=== PATIENT | male | born 1965 | race Caucasian/White ===

== ENCOUNTER 2019-03-27 15:55 | Inpatient (IN) | payer OTHER ==
[2019-03-27 16:25] LABS: ADD MAN DIFF? NO
[2019-03-27 16:26] LABS: WHITE BLOOD COUNT 13.4 10^3/ul (4.8-10.8)
[2019-03-27 16:26] LABS: BASOPHIL # 0.1 10^3/ul (0.0-0.1); BASOPHILS % 0.4 % (0.0-2.0); EOSINOPHILS # 0.5 10^3/ul (0.0-0.5); EOSINOPHILS % 3.8 % (0.0-7.0); HEMATOCRIT 36.5 % (42.0-52.0); HEMOGLOBIN 12.1 g/dl (14.0-18.0); MEAN CORPUSCULAR HEMOGLOBIN 28.2 pg (29.0-33.0); MEAN CORPUSCULAR HGB CONC 33.2 g/dl (32.0-37.0); MEAN CORPUSCULAR VOLUME 85.1 fl (82.0-101.0); MEAN PLATELET VOLUME 9.3 fl (7.4-10.4); MONOCYTE # 0.8 10^3/ul (0.3-0.9); NEUTROPHIL # 9.1 10^3/ul (1.6-7.5); NEUTROPHILS % 67.4 % (39.0-77.0); PLATELET COUNT 442 10^3/UL (140-415); RED BLOOD COUNT 4.29 10^6/ul (4.70-6.10); RED CELL DISTRIBUTION WIDTH 14.2 % (11.5-14.5)
[2019-03-27 16:45] LABS: ALANINE AMINOTRANSFERASE 27 IU/L (13-69); ALBUMIN 3.4 g/dl (3.3-4.9); ALBUMIN/GLOBULIN RATIO 0.85; ALKALINE PHOSPHATASE 138 IU/L (42-121); ANION GAP 8 (5-13); ASPARTATE AMINO TRANSFERASE 30 IU/L (15-46); BILIRUBIN,INDIRECT 0.8 mg/dl (0-1.1); BILIRUBIN,TOTAL 0.8 mg/dl (0.2-1.3); BLOOD UREA NITROGEN 16 mg/dl (7-20); CALCIUM 8.6 mg/dl (8.4-10.2); CARBON DIOXIDE 26 mmol/L (21-31); CHLORIDE 100 mmol/L (97-110); CREATININE 0.75 mg/dl (0.61-1.24); Estimated GFR > 60 mL/min (>60); GLUCOSE 356 mg/dl (70-220); POTASSIUM 4.3 mmol/L (3.5-5.1); SODIUM 134 mmol/L (135-144); TOTAL PROTEIN 7.4 g/dl (6.1-8.1)
[2019-03-27 16:49] LABS: INR 1.01; PARTIAL THROMBOPLASTIN TIME 21.3 Sec (23.0-35.0); PROTIME 13.4 Sec (11.9-14.9)
[2019-03-27 16:56] LABS: TROPONIN-I 0.019 ng/ml (0.000-0.120)
[2019-03-27] MEDS ORDERED: ACETAMINOPHEN 325 MG TAB PO ×2 (17:30→18:00)
[2019-03-27] MEDS ORDERED: ONDANSETRON 4 MG INJ IV ×2 (17:30→18:00)
[2019-03-27] MEDS: FUROSEMIDE 40 MG INJ IV ×2 (17:51→18:03)
[2019-03-27] MEDS ORDERED: FUROSEMIDE 100 MG INJ IV (18:00)
[2019-03-27] MEDS ORDERED: NACL 0.9% 3 ML SYG IV (18:00)
[2019-03-27] MEDS ORDERED: GLUCAGON 1 MG INJ IM (18:30)
[2019-03-27] MEDS ORDERED: DEXTROSE 50% 50 ML SYRINGE IV ×2 (18:30)
[2019-03-27] MEDS ORDERED: GLUCOSE GEL 15 GRAM TUBE BUCCAL (18:30)
[2019-03-27] MEDS ORDERED: GLUCOSE GEL 15 GRAM TUBE PO ×2 (18:30)
[2019-03-27 19:21] LABS: PROCALCITONIN 0.23 ng/mL (0.00-0.10)
[2019-03-27] MEDS: FAMOTIDINE 20 MG TAB PO (21:07)
[2019-03-27] MEDS: ATORVASTATIN 40 MG TAB PO (21:07)
[2019-03-27 21:08] LABS: LACTIC ACID 1.4 mmol/L (0.5-2.0)
[2019-03-27] MEDS: INSULIN ASPART [NOVOLOG] 3 ML PEN SC (21:43)
[2019-03-27 22:44] LABS: LACTIC ACID 1.3 mmol/L (0.5-2.0)
[2019-03-28] MEDS: ACCU-CHEK XX (01:48)
[2019-03-28 04:28] LABS: ADD MAN DIFF? NO
[2019-03-28 04:30] LABS: WHITE BLOOD COUNT 14.5 10^3/ul (4.8-10.8)
[2019-03-28 04:30] LABS: BASOPHIL # 0.1 10^3/ul (0.0-0.1); BASOPHILS % 0.3 % (0.0-2.0); EOSINOPHILS # 0.7 10^3/ul (0.0-0.5); EOSINOPHILS % 4.8 % (0.0-7.0); HEMOGLOBIN 12.1 g/dl (14.0-18.0); LYMPHOCYTES # 4.4 10^3/ul (0.8-2.9); LYMPHOCYTES % 30.1 % (15.0-51.0); MEAN CORPUSCULAR HGB CONC 32.7 g/dl (32.0-37.0); MEAN CORPUSCULAR VOLUME 85.6 fl (82.0-101.0); MEAN PLATELET VOLUME 9.3 fl (7.4-10.4); MONOCYTE # 0.8 10^3/ul (0.3-0.9); MONOCYTES % 5.7 % (0.0-11.0); NEUTROPHIL # 8.5 10^3/ul (1.6-7.5); NEUTROPHILS % 58.7 % (39.0-77.0); PLATELET COUNT 437 10^3/UL (140-415); RED BLOOD COUNT 4.32 10^6/ul (4.70-6.10); RED CELL DISTRIBUTION WIDTH 14.2 % (11.5-14.5)
[2019-03-28 04:47] LABS: ALANINE AMINOTRANSFERASE 26 IU/L (13-69); ALBUMIN 3.3 g/dl (3.3-4.9); ALBUMIN/GLOBULIN RATIO 0.78; ALKALINE PHOSPHATASE 144 IU/L (42-121); ANION GAP 7 (5-13); ASPARTATE AMINO TRANSFERASE 25 IU/L (15-46); BILIRUBIN,INDIRECT 0.7 mg/dl (0-1.1); BILIRUBIN,TOTAL 0.7 mg/dl (0.2-1.3); BLOOD UREA NITROGEN 15 mg/dl (7-20); CALCIUM 8.7 mg/dl (8.4-10.2); CARBON DIOXIDE 27 mmol/L (21-31); CHLORIDE 101 mmol/L (97-110); CHOL/HDL RATIO 6.2 RATIO; CHOLESTEROL 168 mg/dl (100-200); CREATININE 0.59 mg/dl (0.61-1.24); Estimated GFR > 60 mL/min (>60); GLUCOSE 213 mg/dl (70-220); HDL CHOLESTEROL 27 mg/dl (28-71); LDL CHOLESTEROL,CALCULATED 123 mg/dl; PHOSPHORUS 4.4 mg/dl (2.5-4.9); POTASSIUM 4.2 mmol/L (3.5-5.1); SODIUM 135 mmol/L (135-144); TOTAL PROTEIN 7.5 g/dl (6.1-8.1); TRIGLYCERIDES 92 mg/dl (0-149)
[2019-03-28 05:02] LABS: HEMOGLOBIN A1C 9.7 % (0-5.9)
[2019-03-28 05:17] LABS: THYROID STIMULATING HORMONE 0.825 MIU/L (0.465-4.680)
[2019-03-28] MEDS: PIPER-TAZO 3.375 GM IV (PMX) 100 ML IVPB ×4 (05:25→23:46)
[2019-03-28] MEDS: FUROSEMIDE 40 MG INJ IV (05:26)
[2019-03-28 06:10] LABS: AADO2 Arterial 130.8 mmHg (7.0-24.0); Allen Test ACCEPTAB; Arterial Base Excess -0.8 mmol/L (-3.0-3); Arterial Blood Gas Oxygen Sat 90.2 mmHG (95.0-98.0); Arterial COHb 0.3 % (0.0-3.0); Arterial Fraction of Oxyhgb 89.6 % (93.0-99.0); Arterial HCO3 23.7 mmol/L (22.0-26.0); Arterial MetHb 0.4 % (0.0-1.5); Arterial pCO2 38.7 mmhg (35-45); MODE NASAL CANNULA; Site Right Radial
[2019-03-28] MEDS: ASPIRIN 81 MG TAB PO (08:41)
[2019-03-28] MEDS: CLOPIDOGREL 75 MG TAB PO (08:41)
[2019-03-28] MEDS: FAMOTIDINE 20 MG TAB PO ×2 (08:41→20:48)
[2019-03-28] MEDS: ENOXAPARIN 30 MG/0.3 ML SYG SC (08:42)
[2019-03-28] MEDS: INSULIN ASPART [NOVOLOG] 3 ML PEN SC ×4 (09:00→20:52)
[2019-03-28 09:56] LABS: TROPONIN-I 0.023 ng/ml (0.000-0.120)
[2019-03-28 20:16] LABS: AADO2 Arterial 220.1 mmHg (7.0-24.0); Allen Test ACCEPTAB; Arterial Base Excess 2.9 mmol/L (-3.0-3); Arterial Blood Gas Oxygen Sat 97.8 mmHG (95.0-98.0); Arterial COHb 0 % (0.0-3.0); Arterial Fraction of Oxyhgb 97.3 % (93.0-99.0); Arterial HCO3 25.7 mmol/L (22.0-26.0); Arterial MetHb 0.5 % (0.0-1.5); Arterial pCO2 33.7 mmhg (35-45); MODE HFNC; Site Left Radial
[2019-03-28] MEDS: ATORVASTATIN 40 MG TAB PO (20:48)
[2019-03-29] MEDS: ACCU-CHEK XX (02:00)
[2019-03-29 04:52] LABS: ADD MAN DIFF? NO
[2019-03-29 04:57] LABS: WHITE BLOOD COUNT 11.4 10^3/ul (4.8-10.8)
[2019-03-29 04:57] LABS: BASOPHIL # 0.1 10^3/ul (0.0-0.1); BASOPHILS % 0.4 % (0.0-2.0); EOSINOPHILS # 0.6 10^3/ul (0.0-0.5); EOSINOPHILS % 5.4 % (0.0-7.0); HEMATOCRIT 35.1 % (42.0-52.0); HEMOGLOBIN 11.5 g/dl (14.0-18.0); LYMPHOCYTES # 2.9 10^3/ul (0.8-2.9); LYMPHOCYTES % 25.7 % (15.0-51.0); MEAN CORPUSCULAR HEMOGLOBIN 27.6 pg (29.0-33.0); MEAN CORPUSCULAR HGB CONC 32.8 g/dl (32.0-37.0); MEAN CORPUSCULAR VOLUME 84.2 fl (82.0-101.0); MEAN PLATELET VOLUME 9.1 fl (7.4-10.4); MONOCYTE # 0.6 10^3/ul (0.3-0.9); MONOCYTES % 5.4 % (0.0-11.0); NEUTROPHIL # 7.2 10^3/ul (1.6-7.5); NEUTROPHILS % 62.7 % (39.0-77.0); PLATELET COUNT 457 10^3/UL (140-415); RED BLOOD COUNT 4.17 10^6/ul (4.70-6.10); RED CELL DISTRIBUTION WIDTH 14.1 % (11.5-14.5)
[2019-03-29] MEDS: PIPER-TAZO 3.375 GM IV (PMX) 100 ML IVPB ×3 (05:20→17:28)
[2019-03-29 05:23] LABS: ALANINE AMINOTRANSFERASE 29 IU/L (13-69); ALBUMIN/GLOBULIN RATIO 0.76; ALKALINE PHOSPHATASE 114 IU/L (42-121); ANION GAP 5 (5-13); ASPARTATE AMINO TRANSFERASE 24 IU/L (15-46); BILIRUBIN,INDIRECT 0.7 mg/dl (0-1.1); BILIRUBIN,TOTAL 0.7 mg/dl (0.2-1.3); BLOOD UREA NITROGEN 20 mg/dl (7-20); CALCIUM 8.3 mg/dl (8.4-10.2); CARBON DIOXIDE 31 mmol/L (21-31); CHLORIDE 98 mmol/L (97-110); CREATININE 0.76 mg/dl (0.61-1.24); Estimated GFR > 60 mL/min (>60); GLUCOSE 135 mg/dl (70-220); POTASSIUM 3.6 mmol/L (3.5-5.1); SODIUM 134 mmol/L (135-144); TOTAL PROTEIN 6.9 g/dl (6.1-8.1)
[2019-03-29] MEDS: INSULIN ASPART [NOVOLOG] 3 ML PEN SC ×4 (07:58→21:00)
[2019-03-29] MEDS: FAMOTIDINE 20 MG TAB PO ×2 (08:00→21:31)
[2019-03-29] MEDS: CLOPIDOGREL 75 MG TAB PO (08:00)
[2019-03-29] MEDS: FUROSEMIDE 40 MG TAB PO ×2 (08:00→17:28)
[2019-03-29] MEDS: ASPIRIN 81 MG TAB PO (08:00)
[2019-03-29] MEDS: ENOXAPARIN 30 MG/0.3 ML SYG SC (08:18)
[2019-03-29] MEDS: ATORVASTATIN 40 MG TAB PO (21:31)
[2019-03-29] MEDS: INSULIN GLARGINE [LANTus] (100 UNITS/ML) SYG SC (21:35)
[2019-03-30] MEDS: PIPER-TAZO 3.375 GM IV (PMX) 100 ML IVPB ×4 (00:09→17:32)
[2019-03-30] MEDS: ACCU-CHEK XX (02:00)
[2019-03-30] MEDS: FUROSEMIDE 40 MG TAB PO ×2 (05:48→17:32)
[2019-03-30 06:30] LABS: ADD MAN DIFF? NO
[2019-03-30 06:41] LABS: WHITE BLOOD COUNT 9.2 10^3/ul (4.8-10.8)
[2019-03-30 06:41] LABS: BASOPHILS % 0.4 % (0.0-2.0); EOSINOPHILS # 0.5 10^3/ul (0.0-0.5); EOSINOPHILS % 5.7 % (0.0-7.0); HEMATOCRIT 36.9 % (42.0-52.0); HEMOGLOBIN 12.1 g/dl (14.0-18.0); LYMPHOCYTES # 2.6 10^3/ul (0.8-2.9); LYMPHOCYTES % 27.8 % (15.0-51.0); MEAN CORPUSCULAR HEMOGLOBIN 27.5 pg (29.0-33.0); MEAN CORPUSCULAR HGB CONC 32.8 g/dl (32.0-37.0); MEAN CORPUSCULAR VOLUME 83.9 fl (82.0-101.0); MEAN PLATELET VOLUME 9.2 fl (7.4-10.4); MONOCYTE # 0.6 10^3/ul (0.3-0.9); MONOCYTES % 6.3 % (0.0-11.0); NEUTROPHIL # 5.4 10^3/ul (1.6-7.5); NEUTROPHILS % 59.5 % (39.0-77.0); PLATELET COUNT 538 10^3/UL (140-415)
[2019-03-30 06:57] LABS: PHOSPHORUS 4.6 mg/dl (2.5-4.9)
[2019-03-30 07:19] LABS: ANION GAP 7 (5-13); BLOOD UREA NITROGEN 16 mg/dl (7-20); CALCIUM 8.6 mg/dl (8.4-10.2); CARBON DIOXIDE 32 mmol/L (21-31); CHLORIDE 95 mmol/L (97-110); CREATININE 0.77 mg/dl (0.61-1.24); Estimated GFR > 60 mL/min (>60); GLUCOSE 136 mg/dl (70-220); POTASSIUM 3.7 mmol/L (3.5-5.1); SODIUM 134 mmol/L (135-144)
[2019-03-30] MEDS: CLOPIDOGREL 75 MG TAB PO (08:00)
[2019-03-30] MEDS: FAMOTIDINE 20 MG TAB PO ×2 (08:00→21:05)
[2019-03-30] MEDS: ASPIRIN 81 MG TAB PO (08:00)
[2019-03-30] MEDS: INSULIN ASPART [NOVOLOG] 3 ML PEN SC ×4 (08:08→21:14)
[2019-03-30] MEDS: ENOXAPARIN 30 MG/0.3 ML SYG SC (08:09)
[2019-03-30] MEDS: INSULIN GLARGINE [LANTus] (100 UNITS/ML) SYG SC (20:00)
[2019-03-30] MEDS: ATORVASTATIN 40 MG TAB PO (21:05)
[2019-03-31] MEDS: PIPER-TAZO 3.375 GM IV (PMX) 100 ML IVPB ×5 (00:07→23:10)
[2019-03-31] MEDS: ACCU-CHEK XX (02:15)
[2019-03-31] MEDS: FUROSEMIDE 40 MG TAB PO ×2 (05:44→09:00)
[2019-03-31 06:13] LABS: ADD MAN DIFF? NO
[2019-03-31 06:17] LABS: WHITE BLOOD COUNT 9.4 10^3/ul (4.8-10.8)
[2019-03-31 06:17] LABS: BASOPHILS % 0.3 % (0.0-2.0); EOSINOPHILS # 0.5 10^3/ul (0.0-0.5); EOSINOPHILS % 5.7 % (0.0-7.0); HEMATOCRIT 39.5 % (42.0-52.0); HEMOGLOBIN 12.9 g/dl (14.0-18.0); LYMPHOCYTES # 3.1 10^3/ul (0.8-2.9); LYMPHOCYTES % 32.8 % (15.0-51.0); MEAN CORPUSCULAR HEMOGLOBIN 27.7 pg (29.0-33.0); MEAN CORPUSCULAR HGB CONC 32.7 g/dl (32.0-37.0); MEAN CORPUSCULAR VOLUME 84.8 fl (82.0-101.0); MONOCYTE # 0.7 10^3/ul (0.3-0.9); MONOCYTES % 6.9 % (0.0-11.0); NEUTROPHIL # 5.1 10^3/ul (1.6-7.5); NEUTROPHILS % 54.1 % (39.0-77.0); PLATELET COUNT 553 10^3/UL (140-415); RED BLOOD COUNT 4.66 10^6/ul (4.70-6.10); RED CELL DISTRIBUTION WIDTH 13.8 % (11.5-14.5)
[2019-03-31 06:55] LABS: ANION GAP 8 (5-13); BLOOD UREA NITROGEN 15 mg/dl (7-20); CALCIUM 8.7 mg/dl (8.4-10.2); CARBON DIOXIDE 33 mmol/L (21-31); CHLORIDE 95 mmol/L (97-110); CREATININE 0.89 mg/dl (0.61-1.24); Estimated GFR > 60 mL/min (>60); GLUCOSE 135 mg/dl (70-220); POTASSIUM 3.9 mmol/L (3.5-5.1); SODIUM 136 mmol/L (135-144)
[2019-03-31 07:02] LABS: PHOSPHORUS 4.7 mg/dl (2.5-4.9)
[2019-03-31] MEDS: INSULIN ASPART [NOVOLOG] 3 ML PEN SC ×5 (08:00→20:43)
[2019-03-31] MEDS: ASPIRIN 81 MG TAB PO (08:16)
[2019-03-31] MEDS: FAMOTIDINE 20 MG TAB PO ×2 (08:17→20:14)
[2019-03-31] MEDS: CLOPIDOGREL 75 MG TAB PO (08:17)
[2019-03-31] MEDS: ENOXAPARIN 30 MG/0.3 ML SYG SC (08:23)
[2019-03-31] MEDS: FUROSEMIDE 40 MG INJ IV (11:40)
[2019-03-31] MEDS: METHYLPREDNISOLONE 40 MG INJ IV ×2 (13:18→21:24)
[2019-03-31] MEDS: ATORVASTATIN 40 MG TAB PO (20:14)
[2019-03-31] MEDS: INSULIN GLARGINE [LANTus] (100 UNITS/ML) SYG SC ×2 (20:43→20:44)
[2019-04-01] MEDS: ACCU-CHEK XX (01:13)
[2019-04-01] MEDS: PIPER-TAZO 3.375 GM IV (PMX) 100 ML IVPB ×3 (06:06→18:21)
[2019-04-01] MEDS: METHYLPREDNISOLONE 40 MG INJ IV ×3 (06:06→22:01)
[2019-04-01 06:18] LABS: ADD MAN DIFF? NO
[2019-04-01 06:31] LABS: BASOPHILS % 0.1 % (0.0-2.0); HEMATOCRIT 37.5 % (42.0-52.0); HEMOGLOBIN 12.2 g/dl (14.0-18.0); LYMPHOCYTES # 1.8 10^3/ul (0.8-2.9); LYMPHOCYTES % 13.1 % (15.0-51.0); MEAN CORPUSCULAR HEMOGLOBIN 27.9 pg (29.0-33.0); MEAN CORPUSCULAR HGB CONC 32.5 g/dl (32.0-37.0); MEAN CORPUSCULAR VOLUME 85.6 fl (82.0-101.0); MEAN PLATELET VOLUME 9.2 fl (7.4-10.4); MONOCYTE # 0.2 10^3/ul (0.3-0.9); MONOCYTES % 1.7 % (0.0-11.0); NEUTROPHIL # 11.7 10^3/ul (1.6-7.5); NEUTROPHILS % 84.6 % (39.0-77.0); PLATELET COUNT 530 10^3/UL (140-415); RED BLOOD COUNT 4.38 10^6/ul (4.70-6.10); RED CELL DISTRIBUTION WIDTH 13.5 % (11.5-14.5)
[2019-04-01 06:31] LABS: WHITE BLOOD COUNT 13.8 10^3/ul (4.8-10.8)
[2019-04-01 07:14] LABS: ANION GAP 5 (5-13); BLOOD UREA NITROGEN 26 mg/dl (7-20); CALCIUM 8.5 mg/dl (8.4-10.2); CARBON DIOXIDE 31 mmol/L (21-31); CHLORIDE 98 mmol/L (97-110); CREATININE 0.72 mg/dl (0.61-1.24); Estimated GFR > 60 mL/min (>60); GLUCOSE 317 mg/dl (70-220); MAGNESIUM 2.1 mg/dl (1.7-2.5); PHOSPHORUS 3.9 mg/dl (2.5-4.9); POTASSIUM 3.9 mmol/L (3.5-5.1); SODIUM 134 mmol/L (135-144)
[2019-04-01] MEDS: ASPIRIN 81 MG TAB PO (08:08)
[2019-04-01] MEDS: CLOPIDOGREL 75 MG TAB PO (08:08)
[2019-04-01] MEDS: FAMOTIDINE 20 MG TAB PO ×2 (08:08→20:40)
[2019-04-01] MEDS: FUROSEMIDE 40 MG INJ IV (08:08)
[2019-04-01] MEDS: INSULIN ASPART [NOVOLOG] 3 ML PEN SC ×7 (08:15→22:15)
[2019-04-01] MEDS: ENOXAPARIN 30 MG/0.3 ML SYG SC (08:15)
[2019-04-01] MEDS: LOSARTAN 25 MG TAB PO (11:14)
[2019-04-01 14:24] LABS: GLUCOSE 402 mg/dl (70-220)
[2019-04-01 15:44] LABS: AADO2 Arterial 34.3 mmHg (7.0-24.0); Allen Test ACCEPTAB; Arterial Base Excess 3.2 mmol/L (-3.0-3); Arterial Blood Gas Oxygen Sat 94.7 mmHG (95.0-98.0); Arterial COHb 0.1 % (0.0-3.0); Arterial Fraction of Oxyhgb 94.2 % (93.0-99.0); Arterial HCO3 26.7 mmol/L (22.0-26.0); Arterial MetHb 0.4 % (0.0-1.5); Arterial pCO2 36.8 mmhg (35-45); MODE ROOM AIR; Site Right Radial
[2019-04-01] MEDS: ATORVASTATIN 40 MG TAB PO (20:40)
[2019-04-01] MEDS: INSULIN GLARGINE [LANTus] (100 UNITS/ML) SYG SC (20:48)
[2019-04-02] MEDS: PIPER-TAZO 3.375 GM IV (PMX) 100 ML IVPB ×4 (00:23→17:12)
[2019-04-02] MEDS: ACCU-CHEK XX (01:53)
[2019-04-02] MEDS ORDERED: ACCU-CHEK XX (02:00)
[2019-04-02] MEDS: METHYLPREDNISOLONE 40 MG INJ IV ×3 (05:56→22:00)
[2019-04-02 06:43] LABS: ADD MAN DIFF? NO
[2019-04-02 06:56] LABS: ABNORMAL IP MESSAGE 1; BASOPHILS % 0.1 % (0.0-2.0); HEMATOCRIT 36.1 % (42.0-52.0); HEMOGLOBIN 11.5 g/dl (14.0-18.0); LYMPHOCYTES # 2.2 10^3/ul (0.8-2.9); MEAN CORPUSCULAR HEMOGLOBIN 27.6 pg (29.0-33.0); MEAN CORPUSCULAR HGB CONC 31.9 g/dl (32.0-37.0); MEAN CORPUSCULAR VOLUME 86.6 fl (82.0-101.0); MEAN PLATELET VOLUME 9.3 fl (7.4-10.4); MONOCYTE # 0.5 10^3/ul (0.3-0.9); MONOCYTES % 2.2 % (0.0-11.0); NEUTROPHIL # 21.1 10^3/ul (1.6-7.5); NEUTROPHILS % 87.9 % (39.0-77.0); PLATELET COUNT 541 10^3/UL (140-415); POSITIVE DIFF @See below; RED BLOOD COUNT 4.17 10^6/ul (4.70-6.10); RED CELL DISTRIBUTION WIDTH 13.8 % (11.5-14.5)
[2019-04-02 06:56] LABS: WHITE BLOOD COUNT 24.1 10^3/ul (4.8-10.8)
[2019-04-02 07:13] LABS: ANION GAP 7 (5-13); BLOOD UREA NITROGEN 29 mg/dl (7-20); CALCIUM 8.5 mg/dl (8.4-10.2); CARBON DIOXIDE 31 mmol/L (21-31); CHLORIDE 100 mmol/L (97-110); CREATININE 0.73 mg/dl (0.61-1.24); Estimated GFR > 60 mL/min (>60); GLUCOSE 259 mg/dl (70-220); PHOSPHORUS 3.4 mg/dl (2.5-4.9); POTASSIUM 3.8 mmol/L (3.5-5.1); SODIUM 138 mmol/L (135-144)
[2019-04-02] MEDS: ASPIRIN 81 MG TAB PO (08:18)
[2019-04-02] MEDS: FAMOTIDINE 20 MG TAB PO ×2 (08:18→21:09)
[2019-04-02] MEDS: CLOPIDOGREL 75 MG TAB PO (08:19)
[2019-04-02] MEDS: LOSARTAN 25 MG TAB PO (08:20)
[2019-04-02] MEDS: FUROSEMIDE 40 MG INJ IV (08:20)
[2019-04-02] MEDS: INSULIN ASPART [NOVOLOG] 3 ML PEN SC ×8 (08:40→21:07)
[2019-04-02] MEDS: ENOXAPARIN 30 MG/0.3 ML SYG SC (08:40)
[2019-04-02 12:36] LABS: NIL 0.02 IU/mL; QUANTIFERON(R)-TB GOLD NEGATIVE (NEGATIVE); TB2-NIL 0.01 IU/mL
[2019-04-02] MEDS: NPH, HUMAN INSULIN ISOPHANE 3ML VIAL SC ×2 (14:57→22:00)
[2019-04-02] MEDS: INSULIN GLARGINE [LANTus] (100 UNITS/ML) SYG SC (20:00)
[2019-04-02] MEDS: ATORVASTATIN 40 MG TAB PO (21:09)
[2019-04-03] MEDS: PIPER-TAZO 3.375 GM IV (PMX) 100 ML IVPB ×5 (00:50→23:48)
[2019-04-03] MEDS: ACCU-CHEK XX ×2 (02:00→23:42)
[2019-04-03] MEDS: METHYLPREDNISOLONE 40 MG INJ IV ×3 (06:34→22:37)
[2019-04-03 06:55] LABS: ADD MAN DIFF? NO
[2019-04-03 07:07] LABS: PLATELET COUNT 517 10^3/UL (140-415)
[2019-04-03 07:08] LABS: ABNORMAL IP MESSAGE 1; BASOPHILS % 0.1 % (0.0-2.0); HEMATOCRIT 38.2 % (42.0-52.0); LYMPHOCYTES # 2.1 10^3/ul (0.8-2.9); LYMPHOCYTES % 8.8 % (15.0-51.0); MEAN CORPUSCULAR HEMOGLOBIN 27.6 pg (29.0-33.0); MEAN CORPUSCULAR HGB CONC 31.4 g/dl (32.0-37.0); MEAN CORPUSCULAR VOLUME 87.8 fl (82.0-101.0); MEAN PLATELET VOLUME 9.4 fl (7.4-10.4); MONOCYTE # 0.8 10^3/ul (0.3-0.9); MONOCYTES % 3.2 % (0.0-11.0); NEUTROPHIL # 20.9 10^3/ul (1.6-7.5); NEUTROPHILS % 87.2 % (39.0-77.0); PLATELET COUNT 539 10^3/UL (140-415); POSITIVE DIFF @See below; RED BLOOD COUNT 4.35 10^6/ul (4.70-6.10)
[2019-04-03 07:24] LABS: INR 1.07; PT RATIO 1.1
[2019-04-03 07:26] LABS: PARTIAL THROMBOPLASTIN TIME 26.5 Sec (23.0-35.0)
[2019-04-03 07:27] LABS: THROMBIN TIME 18.1 SEC (13.8-19.1)
[2019-04-03 07:28] LABS: ANION GAP 7 (5-13); BLOOD UREA NITROGEN 33 mg/dl (7-20); CALCIUM 8.6 mg/dl (8.4-10.2); CARBON DIOXIDE 29 mmol/L (21-31); CHLORIDE 103 mmol/L (97-110); CREATININE 0.71 mg/dl (0.61-1.24); Estimated GFR > 60 mL/min (>60); GLUCOSE 291 mg/dl (70-220); POTASSIUM 4.1 mmol/L (3.5-5.1); SODIUM 139 mmol/L (135-144)
[2019-04-03] MEDS: NPH, HUMAN INSULIN ISOPHANE 3ML VIAL SC ×3 (08:04→22:41)
[2019-04-03] MEDS: INSULIN ASPART [NOVOLOG] 3 ML PEN SC ×9 (08:27→23:45)
[2019-04-03] MEDS: CLOPIDOGREL 75 MG TAB PO (09:03)
[2019-04-03] MEDS: FAMOTIDINE 20 MG TAB PO ×2 (09:03→21:15)
[2019-04-03] MEDS: FUROSEMIDE 40 MG INJ IV (09:04)
[2019-04-03] MEDS: ASPIRIN 81 MG TAB PO (09:04)
[2019-04-03] MEDS: LOSARTAN 25 MG TAB PO (09:58)
[2019-04-03] MEDS: ENOXAPARIN 30 MG/0.3 ML SYG SC (10:15)
[2019-04-03] MEDS: ATORVASTATIN 40 MG TAB PO (21:15)
[2019-04-03] MEDS: INSULIN GLARGINE [LANTus] (100 UNITS/ML) SYG SC (21:19)
[2019-04-03 21:38] LABS: GLUCOSE 421 mg/dl (70-220)
[2019-04-04] MEDS: ACCU-CHEK XX ×2 (02:00→02:21)
[2019-04-04 06:13] LABS: ADD MAN DIFF? NO
[2019-04-04] MEDS: METHYLPREDNISOLONE 40 MG INJ IV ×3 (06:20→21:10)
[2019-04-04] MEDS: PIPER-TAZO 3.375 GM IV (PMX) 100 ML IVPB ×3 (06:20→18:13)
[2019-04-04] MEDS: NPH, HUMAN INSULIN ISOPHANE 3ML VIAL SC ×3 (06:23→21:19)
[2019-04-04 06:27] LABS: WHITE BLOOD COUNT 21.1 10^3/ul (4.8-10.8)
[2019-04-04 06:27] LABS: BASOPHILS % 0.1 % (0.0-2.0); EOSINOPHILS # 0.1 10^3/ul (0.0-0.5); EOSINOPHILS % 0.2 % (0.0-7.0); LYMPHOCYTES # 4.2 10^3/ul (0.8-2.9); LYMPHOCYTES % 19.9 % (15.0-51.0); MEAN CORPUSCULAR HEMOGLOBIN 27.5 pg (29.0-33.0); MEAN CORPUSCULAR HGB CONC 31.6 g/dl (32.0-37.0); MEAN PLATELET VOLUME 9.3 fl (7.4-10.4); MONOCYTE # 1.3 10^3/ul (0.3-0.9); NEUTROPHIL # 15.4 10^3/ul (1.6-7.5); NEUTROPHILS % 73.1 % (39.0-77.0); PLATELET COUNT 525 10^3/UL (140-415); RED BLOOD COUNT 4.37 10^6/ul (4.70-6.10)
[2019-04-04 06:53] LABS: ANION GAP 6 (5-13); BLOOD UREA NITROGEN 30 mg/dl (7-20); CALCIUM 8.5 mg/dl (8.4-10.2); CARBON DIOXIDE 31 mmol/L (21-31); CHLORIDE 100 mmol/L (97-110); CREATININE 0.67 mg/dl (0.61-1.24); Estimated GFR > 60 mL/min (>60); GLUCOSE 215 mg/dl (70-220); POTASSIUM 3.9 mmol/L (3.5-5.1); SODIUM 137 mmol/L (135-144)
[2019-04-04] MEDS: INSULIN ASPART [NOVOLOG] 3 ML PEN SC ×7 (08:00→21:18)
[2019-04-04] MEDS: FAMOTIDINE 20 MG TAB PO ×2 (10:11→21:10)
[2019-04-04] MEDS: LOSARTAN 25 MG TAB PO (10:11)
[2019-04-04] MEDS: FUROSEMIDE 40 MG INJ IV (10:11)
[2019-04-04] MEDS: ENOXAPARIN 30 MG/0.3 ML SYG SC (10:14)
[2019-04-04] MEDS: INSULIN GLARGINE [LANTus] (100 UNITS/ML) SYG SC (21:18)
[2019-04-04] MEDS: ATORVASTATIN 40 MG TAB PO (21:32)
[2019-04-05] MEDS: ACCU-CHEK XX (01:12)
[2019-04-05] MEDS: PIPER-TAZO 3.375 GM IV (PMX) 100 ML IVPB ×3 (01:14→11:55)
[2019-04-05] MEDS: METHYLPREDNISOLONE 40 MG INJ IV ×3 (05:22→21:27)
[2019-04-05] MEDS: NPH, HUMAN INSULIN ISOPHANE 3ML VIAL SC ×3 (05:33→21:37)
[2019-04-05 05:42] LABS: ADD MAN DIFF? NO
[2019-04-05 05:49] LABS: BASOPHILS % 0.1 % (0.0-2.0); HEMATOCRIT 38.6 % (42.0-52.0); HEMOGLOBIN 12.3 g/dl (14.0-18.0); LYMPHOCYTES # 2.1 10^3/ul (0.8-2.9); LYMPHOCYTES % 13.5 % (15.0-51.0); MEAN CORPUSCULAR HEMOGLOBIN 27.5 pg (29.0-33.0); MEAN CORPUSCULAR HGB CONC 31.9 g/dl (32.0-37.0); MEAN CORPUSCULAR VOLUME 86.2 fl (82.0-101.0); MEAN PLATELET VOLUME 9.3 fl (7.4-10.4); MONOCYTE # 0.9 10^3/ul (0.3-0.9); MONOCYTES % 5.5 % (0.0-11.0); NEUTROPHIL # 12.7 10^3/ul (1.6-7.5); NEUTROPHILS % 80.4 % (39.0-77.0); PLATELET COUNT 565 10^3/UL (140-415); RED BLOOD COUNT 4.48 10^6/ul (4.70-6.10); RED CELL DISTRIBUTION WIDTH 14.4 % (11.5-14.5)
[2019-04-05 05:49] LABS: WHITE BLOOD COUNT 15.8 10^3/ul (4.8-10.8)
[2019-04-05 06:21] LABS: ANION GAP 7 (5-13); BLOOD UREA NITROGEN 35 mg/dl (7-20); CALCIUM 8.5 mg/dl (8.4-10.2); CARBON DIOXIDE 29 mmol/L (21-31); CHLORIDE 102 mmol/L (97-110); CREATININE 0.73 mg/dl (0.61-1.24); Estimated GFR > 60 mL/min (>60); GLUCOSE 324 mg/dl (70-220); POTASSIUM 4.1 mmol/L (3.5-5.1); SODIUM 138 mmol/L (135-144)
[2019-04-05] MEDS: INSULIN ASPART [NOVOLOG] 3 ML PEN SC ×7 (07:47→21:37)
[2019-04-05] MEDS: FAMOTIDINE 20 MG TAB PO ×2 (09:27→21:26)
[2019-04-05] MEDS ORDERED: FENTAnyl 50 MCG/ML VIAL (13:42)
[2019-04-05] MEDS ORDERED: ROCURONIUM 50 MG INJ (13:42)
[2019-04-05] MEDS ORDERED: LIDOCAINE 2% (SDV) 5 ML INJ (13:42)
[2019-04-05] MEDS ORDERED: ETOMIDATE 20 MG INJ (13:42)
[2019-04-05] MEDS ORDERED: MIDAZOLAM 1 MG/ML 2 ML INJ (14:17)
[2019-04-05] MEDS ORDERED: LIDOCAINE 4% (MPF) 5 ML INJ (14:20)
[2019-04-05] MEDS: LIDOCAINE 1% (MPF) 30 ML INJ (14:42)
[2019-04-05] MEDS ORDERED: METOCLOPRAMIDE 10 MG INJ (14:43)
[2019-04-05] MEDS ORDERED: ONDANSETRON 4 MG INJ (14:43)
[2019-04-05] MEDS ORDERED: SUGAMMADEX SODIUM 200 MG/2 ML VIAL IV ×2 (14:43→15:03)
[2019-04-05] MEDS ORDERED: PHENYLephrine (100 MCG/ML) 10ML SYG (14:49)
[2019-04-05] MEDS ORDERED: ALBUTEROL 0.083% (NEB) 2.5 MG/3 ML AMP HHN (15:00)
[2019-04-05] MEDS ORDERED: FENTAnyl 50 MCG/ML VIAL IV ×3 (15:00)
[2019-04-05] MEDS ORDERED: MEPERIDINE 25 MG INJ IV (15:00)
[2019-04-05] MEDS ORDERED: ONDANSETRON 4 MG INJ IV (15:00)
[2019-04-05] MEDS: FUROSEMIDE 40 MG TAB PO (16:51)
[2019-04-05] MEDS: LOSARTAN 25 MG TAB PO (16:52)
[2019-04-05] MEDS: ENOXAPARIN 30 MG/0.3 ML SYG SC (17:07)
[2019-04-05] MEDS: ATORVASTATIN 40 MG TAB PO (21:26)
[2019-04-05] MEDS: INSULIN GLARGINE [LANTus] (100 UNITS/ML) SYG SC (21:38)
[2019-04-06] MEDS: ACCU-CHEK XX (02:00)
[2019-04-06] MEDS: METHYLPREDNISOLONE 40 MG INJ IV (05:48)
[2019-04-06] MEDS: NPH, HUMAN INSULIN ISOPHANE 3ML VIAL SC (06:01)
[2019-04-06 06:04] LABS: ADD MAN DIFF? NO
[2019-04-06 06:07] LABS: BASOPHILS % 0.1 % (0.0-2.0); HEMATOCRIT 39.2 % (42.0-52.0); HEMOGLOBIN 12.4 g/dl (14.0-18.0); LYMPHOCYTES # 2.6 10^3/ul (0.8-2.9); LYMPHOCYTES % 14.2 % (15.0-51.0); MEAN CORPUSCULAR HEMOGLOBIN 27.4 pg (29.0-33.0); MEAN CORPUSCULAR HGB CONC 31.6 g/dl (32.0-37.0); MEAN CORPUSCULAR VOLUME 86.7 fl (82.0-101.0); MEAN PLATELET VOLUME 9.3 fl (7.4-10.4); MONOCYTE # 0.7 10^3/ul (0.3-0.9); NEUTROPHIL # 14.7 10^3/ul (1.6-7.5); NEUTROPHILS % 81.3 % (39.0-77.0); PLATELET COUNT 555 10^3/UL (140-415); RED BLOOD COUNT 4.52 10^6/ul (4.70-6.10); RED CELL DISTRIBUTION WIDTH 14.2 % (11.5-14.5)
[2019-04-06 06:44] LABS: ANION GAP 5 (5-13); BLOOD UREA NITROGEN 31 mg/dl (7-20); CALCIUM 8.7 mg/dl (8.4-10.2); CARBON DIOXIDE 30 mmol/L (21-31); CHLORIDE 102 mmol/L (97-110); CREATININE 0.64 mg/dl (0.61-1.24); Estimated GFR > 60 mL/min (>60); GLUCOSE 169 mg/dl (70-220); POTASSIUM 4.5 mmol/L (3.5-5.1); SODIUM 137 mmol/L (135-144)
[2019-04-06] MEDS: INSULIN ASPART [NOVOLOG] 3 ML PEN SC ×7 (07:46→21:20)
[2019-04-06] MEDS: CLOPIDOGREL 75 MG TAB PO (09:19)
[2019-04-06] MEDS: LOSARTAN 25 MG TAB PO (09:19)
[2019-04-06] MEDS: FUROSEMIDE 40 MG TAB PO (09:20)
[2019-04-06] MEDS: FAMOTIDINE 20 MG TAB PO ×2 (09:20→20:07)
[2019-04-06] MEDS: ENOXAPARIN 30 MG/0.3 ML SYG SC (09:24)
[2019-04-06] MEDS: ATORVASTATIN 40 MG TAB PO (20:07)
[2019-04-06] MEDS: INSULIN GLARGINE [LANTus] (100 UNITS/ML) SYG SC (21:20)
[2019-04-07] MEDS: ALBUMIN HUMAN 25% 100 ML IV ×2 (00:35→01:14)
[2019-04-07] MEDS: ACCU-CHEK XX (01:14)
[2019-04-07] MEDS: INSULIN ASPART [NOVOLOG] 3 ML PEN SC ×7 (08:00→20:21)
[2019-04-07] MEDS: METHYLPREDNISOLONE 40 MG INJ IV (09:00)
[2019-04-07] MEDS: LOSARTAN 25 MG TAB PO (09:00)
[2019-04-07] MEDS: FAMOTIDINE 20 MG TAB PO ×2 (09:40→20:19)
[2019-04-07] MEDS: CLOPIDOGREL 75 MG TAB PO (09:40)
[2019-04-07] MEDS: FUROSEMIDE 40 MG TAB PO (09:44)
[2019-04-07] MEDS: ENOXAPARIN 30 MG/0.3 ML SYG SC (10:00)
[2019-04-07] MEDS: NPH, HUMAN INSULIN ISOPHANE 3ML VIAL SC (10:01)
[2019-04-07] MEDS: predniSONE 20 MG TAB PO (18:13)
[2019-04-07 18:21] LABS: GLUCOSE 74 mg/dl (70-220)
[2019-04-07] MEDS: ATORVASTATIN 40 MG TAB PO (20:19)
[2019-04-07] MEDS: INSULIN GLARGINE [LANTus] (100 UNITS/ML) SYG SC (20:22)
[2019-04-08] MEDS: ACCU-CHEK XX (02:21)
[2019-04-08 06:45] LABS: B-TYPE NATRIURETIC PEPTIDE 2140 PG/ML (0-125)
[2019-04-08] MEDS: INSULIN ASPART [NOVOLOG] 3 ML PEN SC ×4 (08:04→11:47)
[2019-04-08] MEDS: CLOPIDOGREL 75 MG TAB PO (08:48)
[2019-04-08] MEDS: FUROSEMIDE 40 MG TAB PO (08:48)
[2019-04-08] MEDS: FAMOTIDINE 20 MG TAB PO (08:48)
[2019-04-08] MEDS: LOSARTAN 25 MG TAB PO (08:49)
[2019-04-08] MEDS: ENOXAPARIN 30 MG/0.3 ML SYG SC (08:57)
[2019-04-08] MEDS: METHYLPREDNISOLONE 40 MG INJ IV (08:58)
[2019-04-08] MEDS: NPH, HUMAN INSULIN ISOPHANE 3ML VIAL SC (09:02)
== END 2019-04-08 14:00 | disposition home or self-care (01) | DRG 264 ==
LOC: ICU 03-28 06:31 → E/R 15:55 → 6WM 03-29 16:56 → ICU 17:24
PROVIDERS: Internal Medicine
PROC: 0BBG8ZX Excision of Left Upper Lung Lobe, Via Natural or Artificial Opening Endoscopic, Diagnostic (ICD-10-PCS; principal; 2019-04-05 13:00)
PROC: 0B9G8ZX Drainage of Left Upper Lung Lobe, Via Natural or Artificial Opening Endoscopic, Diagnostic (ICD-10-PCS; 2019-04-05 13:00)
DX: I11.0 Hypertensive heart disease with heart failure (principal); J96.00 Acute respiratory failure, unspecified whether with hypoxia or hypercapnia; J98.11 Atelectasis; J84.117 Desquamative interstitial pneumonia; I50.23 Acute on chronic systolic (congestive) heart failure; E11.65 Type 2 diabetes mellitus with hyperglycemia; J84.10 Pulmonary fibrosis, unspecified; I25.2 Old myocardial infarction; Z95.5 Presence of coronary angioplasty implant and graft; Z87.891 Personal history of nicotine dependence; I25.5 Ischemic cardiomyopathy; A49.9 Bacterial infection, unspecified; J47.9 Bronchiectasis, uncomplicated
CPT/HCPCS: 36415; 36600; 71045; 71250; 80048; 80053; 80061; 82803; 82947; 82962; 83036; 83605; 83735; 83880; 84100; 84145; 84443; 84484; 85025; 85049; 85610; 85670; 85730; 86480; 86606; 86635; 87040-91; 87070; 87075; 87081; 87102; 87116; 88309; 93005; 93306; 94660; 97161; 99285-25